=== PATIENT | female | born 1975 | race Two or more races ===

== ENCOUNTER 2019-10-20 13:36 | Outpatient (CLI) | payer MEDICAID ==
[~2019-10-20] VITALS: Ht 152.4 cm; Wt 77.1 kg
[2019-10-20 14:50] VITALS: BP 105/1
[2019-10-20] MEDS ORDERED: JENTADUETO 2.51 EAC2 PO (14:50)
[2019-10-20] MEDS ORDERED: ZOLOFT50 MG ORAL (14:50)
[2019-10-20] MEDS ORDERED: ATORVASTATIN CA40 MG ORAL (14:50)
[2019-10-20] MEDS ORDERED: FAMOTIDINE20 MG ORAL (14:50)
[2019-10-20] MEDS ORDERED: GLIMEPIRIDE4 MG ORAL (14:50)
[2019-10-20] MEDS ORDERED: DICYCLOMINE HCL10 MG ORAL (14:50)
[2019-10-20] MEDS ORDERED: VITAMIN D350 MC1 PO (14:50)
[2019-10-20] MEDS ORDERED: OMEPRAZOLE20 M2 ORAL (14:50)
--- NOTE | 2019-10-20 16:00 | Consultation ---
DATE OF CONSULTATION: 10/20/2019 CONSULTING PHYSICIAN: Sohan Levine M.D. CHIEF COMPLAINT: Abdominal pain, abdominal bloating, pancreatic cyst. HISTORY OF PRESENT ILLNESS: This is a very pleasant 44-year-old female with past medical history of hypercholesteremia, diabetes, depression, and GERD. Apparently, she had pain in the abdomen, had a CT in June did not show anything except for fatty liver, but had followup MRI in September, according to the patient it showed the pancreatic cyst. That is why she was referred to us. The patient has complained of severe bloating, abdominal pain, and 10 pounds of weight loss. PAST MEDICAL HISTORY: Hypercholesteremia, diabetes, depression, and GERD. PAST SURGICAL HISTORY: None. MEDICATIONS: Please see medication reconciliation list. SOCIAL HISTORY: The patient denies any tobacco, alcohol, or drug abuse. FAMILY HISTORY: Noncontributory. REVIEW OF SYSTEMS: A 10-point review of systems was performed and pertinent positives in HPI. PHYSICAL EXAMINATION: VITAL SIGNS: Temperature is 97.6, blood pressure 105/71, pulse 75, and respirations 20. HEENT: Normocephalic and atraumatic. Sclerae anicteric. NECK: Supple. No evidence of obvious lymphadenopathy. CARDIOVASCULAR: Regular rate and rhythm. Plus S1 and S2. LUNGS: Clear to auscultation bilaterally. ABDOMEN: Positive bowel sounds. Soft and nontender. No rebound. No guarding. No peritoneal sign. EXTREMITIES: No cyanosis, no clubbing, no edema. ASSESSMENT: This is a 44-year-old female with the following problem list, 1. Fatty liver. 2. Pancreatic cyst. 3. SIBO. PLAN: Treat the SIBO with Augmentin 875 mg for 10 days. The patient needs endoscopic ultrasound for evaluation of pancreatic cyst. We are going to get authorization for that. In terms of fatty liver, the patient needs a close followup with labs and calculation of the FIB-4 to make sure that the patient is not developing cirrhosis. Sohan Levine M.D. DR: NICOLE JOB#: [id number] CC:
== END 2019-10-20 15:41 | disposition home or self-care (01) ==
LOC: PAN 13:36
DX: R10.9 Unspecified abdominal pain (principal); R14.0 Abdominal distension (gaseous); E11.9 Type 2 diabetes mellitus without complications; E78.00 Pure hypercholesterolemia, unspecified; F32.9 Major depressive disorder, single episode, unspecified; K21.9 Gastro-esophageal reflux disease without esophagitis; K56.609 Unspecified intestinal obstruction, unspecified as to partial versus complete obstruction
CPT/HCPCS: G0463